=== PATIENT | female | born 1950 | race Two or more races ===

== ENCOUNTER 2024-02-20 14:22 | Emergency (ER) | payer OTHER ==
[~2024-02-20] VITALS: Ht 157.5 cm; Wt 68.0 kg
[2024-02-20] MEDS ORDERED: TIROSINT13 MCG PO (14:42)
[2024-02-20] MEDS ORDERED: SUCRALFATE 1 G TABLET PO ONE (16:00)
[2024-02-20] MEDS ORDERED: FAMOtidine 10 MG/ML (4ML VIAL) IV PUSH ONE (16:00)
== END 2024-02-20 16:57 | disposition home or self-care (01) ==
LOC: ER 14:23
DX: R53.81 Other malaise (principal); R10.13 Epigastric pain; I10 Essential (primary) hypertension
CPT/HCPCS: 96365; 99282; J3490